=== PATIENT | female | born 1970 | race Caucasian/White ===

== ENCOUNTER 2017-08-11 06:10 | Inpatient (IN) ==
[2017-08-11] MEDS ORDERED: Lidocaine -MPF 1% 2 ML VIAL ID ONE (06:26)
[2017-08-11] MEDS ORDERED: Albuterol 2.5 MG/3 ML NEBULIZER IH ONE (06:26)
[2017-08-11] MEDS ORDERED: CeFAZolin Syr 2,000MG/20 ML 2,000 MG/20 ML SYRINGE IVPB ONE (06:26)
[2017-08-11] MEDS: Ringers Solution, Lactated 1,000 ML IVC SCH ×3 (06:35→17:06)
[2017-08-11] MEDS ORDERED: *HR* Midazolam HCl 2 MG/2 ML VIAL ONE ×2 (06:58→07:46)
[2017-08-11] MEDS ORDERED: *HR* Propofol 200 MG/20 ML VIAL IVP ONE (06:58)
[2017-08-11] MEDS ORDERED: *HR* FentaNYL (PF) 100 MCG/2 ML VIAL ONE (06:58)
[2017-08-11] MEDS ORDERED: *HR* Rocuronium Bromide 50 MG/5 ML VIAL ONE (06:59)
[2017-08-11] MEDS ORDERED: Ondansetron 4 MG/2 ML VIAL ONE (06:59)
[2017-08-11] MEDS ORDERED: Lidocaine -MPF 2% 2 ML VIAL ONE (06:59)
[2017-08-11] MEDS ORDERED: Lidocaine -MPF 4% 5 ML AMPUL ONE (06:59)
[2017-08-11] MEDS ORDERED: Dexamethasone 4 MG/ML VIAL ONE (06:59)
[2017-08-11] MEDS ORDERED: Lidocaine/EPI 1:100k 1% 20 ML VIAL ONE (07:37)
[2017-08-11] MEDS ORDERED: *HR* Belladonna Alkaloids/Opium 30 MG RECTAL SUPPOSITORY RC ONE (07:37)
[2017-08-11] MEDS ORDERED: *HR* Morphine Sulfate/PF 10 MG/10 ML AMPUL ONE (07:53)
--- NOTE | 2017-08-11 07:59 | Anesthesia Evaluation PreOp ---
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 DECORATING History: Other (anxiety) Other Medical History: Denies Any Significant HX Anesthesia History: No Prior Anesthetic Complications, Past Anesthesia (C/S, tubal, back sx) : No Test: Negative (08-05-17) Alcohol Use: none Drug use: none Medications and Allergies Polyethylene Glycol 3350 [MiraLAX] 17 gm PO DAILY 06/04/15 [History] Venlafaxine XR (24 HR) [Effexor XR] 150 mg PO DAILY 06/04/15 [History] Acyclovir [Zovirax] 400 mg PO BID 08/11/17 [History] Cholecalciferol (D-3) [Vitamin D] 2,000 unit PO DAILY 08/11/17 [History] traZODone [TraZODone] 50 - 100 mg PO HS 08/11/17 [History] 3 Allergy/AdvReac Type Severity Reaction Status Date / Time No Known Allergies Allergy Verified 08/11/17 06:50 - Meds/Allergy Pre-op Review Medications Reviewed: Yes Allergies Reviewed: Yes Beta Blockers on Current Med List: No Anesthesia Exam Selected Entries 08/11/17 06:36 Temperature 98.8 F Pulse Rate 86 Respiratory Rate 18 Blood Pressure 138/77 O2 Sat by Pulse Oximetry 96 Weight: 116kg NPO (# of Hours): 8 - HEENT Pupil (Motor): EOMI Mallampati: II Teeth: Edentulous Oral Opening: Greater than 3 - INSTRUCTOR DECORATING LOC: Oriented INSTRUCTOR DECORATING Motor: Normal RUE, Normal LUE, Normal RLE, Normal LLE, Normal Face INSTRUCTOR DECORATING Sensory: Normal: RUE, LUE, RLE, LLE, Face - Cardiac Rhythm: Regular Murmur: None - Pulmonary Breath Sounds: bilateral Clear Respiratory Effort: Symmetrical Anesthesia Assess/Plan ASA Score: 2 Modified Oakman Scale for Level of Consciousness: Cooperative, oriented, and tranquil Anesthetic Plan: General Monitoring Plan: Standard Monitors Recovery Plan: PACU (patient agrees to GA but refuses intrathecal duramorph)
[2017-08-11] MEDS ORDERED: Acetaminophen IV 1,000 MG/100 ML INFUS..BTL ONE (08:05)
--- NOTE | 2017-08-11 08:05 | History & Physical Report ---
Date of Encounter: 08/11/17 Time of Encounter: 08:03 24 Hour HP Update - Instructions Instructions: If the History and Physical is less than 30 days old and was completed prior to A.M. admission and or procedure and has NOT been updated on calendar day of procedure please complete this update prior to performing procedure. - Update Patient reports changes in Medical Condition: No Changes in examination, assessment, or condition: No Changes in Medication: No Preop tests/diagnostics Reviewed: No Surgery Remains Indicated: Yes Consent for Planned Operative Procedure(s) Verified: Yes - Pre-Operative Checklist Preoperative Checklist Indicated: Yes Prophylactic Antibiotic Ordered: Yes Home Medications Include Beta Aleah: No Beta Aleah Taken Today (Day of Surgery): No Beta Aleah Taken Yesterday (Day Prior to Surgery): No Is VTE Prophylaxis Indicated?: Yes - Attending Attestation phong callejas md facog
[2017-08-11] MEDS ORDERED: Ketamine *HR* 500 MG/10 ML MDV ONE (08:17)
[2017-08-11] MEDS ORDERED: MORPHINE SUL Oral CONC 10 MG/0.5 ML ORAL.SYG SL PRN (08:24)
[2017-08-11] MEDS ORDERED: *HR* OxyCODONE Immed Rel 5 MG TABLET PO PRN ×2 (08:24→11:03)
[2017-08-11] MEDS ORDERED: *HR* Labetalol 20 MG/4 ML SYRINGE IVP PRN (08:24)
[2017-08-11] MEDS ORDERED: Ondansetron 4 MG/2 ML VIAL IVP ONE (08:24)
[2017-08-11] MEDS ORDERED: *HR* Promethazine 25 MG/ML VIAL IVP PRN (08:24)
[2017-08-11] MEDS ORDERED: Ketorolac 30 MG/ML VIAL ONE (08:43)
[2017-08-11] MEDS ORDERED: Venlafaxine XR (24 HR) 150 MG CAP.ER.24H PO SCH (09:00)
[2017-08-11] MEDS ORDERED: Cholecalciferol (D-3) 1,000 UNIT TABLET PO SCH (09:00)
--- NOTE | 2017-08-11 09:06 | Operative Note ---
Date of procedure: 08/11/17 Pre-op diagnosis: Abnormal colon on palpation Post-op diagnosis: other (Likely diverticulitis) Procedure: Intraoperative consultation Anesthesia: DEBRA Surgeon: Leo Escobar Was there an assistant store leader present: No Estimated blood loss (cc): 0 Specimen: None Condition: stable Disposition: no change Procedure in Detail: I was contacted by Dr. Foster during a total abdominal hysterectomy. During the conduct of the operation was noted that the sigmoid colon was abnormal palpation I was called to the operating room to make an intraoperative evaluation. I scrubbed into the operative field and examined the rectum and sigmoid colon. The rectum was normal. The sigmoid colon demonstrated a thickened mesentery that was quite firm. Findings were consistent with subacute diverticulitis. The patient has not previously had colonoscopy and will require confirmatory colonoscopy. I do not feel that the findings were consistent with malignancy or tumor. I have recommended a seven-day course of ciprofloxacin and Flagyl for the patient to treat what appears to be subacute diverticulitis. I will see her in the office during the convalescent period to arrange colonoscopy evaluation. Dr. Foster remained the surgeon of record during the entire procedure. Thank you very much for the consultation
[2017-08-11] MEDS ORDERED: Neostigmine Methylsulfate 3 MG/3 ML SYRINGE ONE (09:22)
--- NOTE | 2017-08-11 10:44 | Anesthesia Evaluation Post Op ---
Date of Encounter: 08/11/17 Time of Encounter: 10:43 - Vital Signs Vital Signs: Selected Entries 08/11/17 10:12 08/11/17 10:32 Temperature 98.3 F Pulse Rate 84 Respiratory Rate 16 Blood Pressure 139/74 O2 Sat by Pulse Oximetry 91 Oxygen Flow Rate (LPM) 3 - Lungs Lungs: Clear Ascult./Percussion - Airway Airway: Non-obstructed - Cardiovascular Regular Rate - Mental Status Mental Status: Alert & Oriented, Answers Appropriately - Pain Pain Scale: 4 Pain Scale used: Numeric (1 - 10) - Nausea Vomiting Nausea Vomiting: Not Present - Hydration Hydration: Ice chips, Ellington catheter - Discharge PostOp Status: Transfer Patient to floor
--- NOTE | 2017-08-11 10:45 | OB/GYN Procedure Note ---
Hysterectomy - Diagnosis Date of procedure: 08/11/17 Hysterectomy pre-op: abnormal uterine bleeding, chronic pelvic pain, menorrhagia Post-op diagnosis: other (Diverticular disease) - Procedure Hysterectomy procedure: total abdominal hysterectomy, left salpingo oophorectomy , right salpingo oophorectomy Surgeon: Alejandro Foster Was there an physical laboratory assistant present: Yes Line Lead: Awa Cabrales Anesthesia provider: Virgilio Tolbert Anesthesia Type: General Estimated blood loss (cc): 100 Complications: none Fluids: crystalloid Urine output (cc): 200 Specimens: right ovary, uterus, cervix, left ovary, right fallopian tube, left fallopian tube Findings: Upon entering the pelvic abdominal cavity, the uterus was consistent with adenomyosis. Left ovary and tube appeared to be stuck to the sigmoid colon. The right tube and ovary appeared to be normal. The sigmoid colon appeared to be indurated. Dr. Escobar came in and evaluated the sigmoid colon please see his note. Disposition: PACU Narrative: Patient was taken to the operating room. After satisfactory anesthesia was achieved, patient placed in supine position Ellington catheter inserted and prepped and draped in usual manner. After appropriate timeout, the abdomen was entered through standard Maylard incision. The Chandan retractor was placed. The above- noted findings were seen. The infundibulopelvic ligament on the right side was coagulated and cut. Round ligament was coagulated and cut on the right side. Bladder flap created anteriorly. The mesol ovarian ligament and round ligament was coagulated and cut. Uterine arteries were coagulated both sides and cut. Bladder flap was created anteriorly. At this time Dr. Escobar came in and evaluated colon. He felt that the patient had diverticular disease and recommended short-term antibiotic therapy as well as colonoscopy. At that point , the cardinal ligaments were coagulated on both sides and cut. The uterosacral Ligaments were clamped cut and suture ligated with 0 Monocryl. The vagina was entered. Allis clamps were placed. Cervix and uterus and attached right adnexa were removed to send to pathology for analysis. The cuff was closed with 0 Monocryl. Attention was then turned to the left tube and ovary. The infundibulopelvic ligament was coagulated and cut. The remainder of the pedicle was coagulated and cut. And the specimen was removed. After assurance of hemostasis, peritoneum was reapproximated with a 2-0 Vicryl over the raw cuff. The packs and retractors were removed. The abdomen was closed standard fashion using 0 Vicryl in the fascia and 3-0 Vicryl and the skin. Sterile dressing was applied. Lesion on the right vulva was prepped and draped in usual manner. Local was used to inject this area. The mass was removed and sent to pathology for analysis. The tissue was reapproximated with a 3-0 Monocryl in a subcuticular manner. Patient did well was taken to recovery room in satisfactory condition. Counts were correct.
[2017-08-11] MEDS ORDERED: Acyclovir 200 MG CAPSULE PO SCH (11:00)
[2017-08-11] MEDS ORDERED: Naloxone 0.4 MG/ML INJ IVP PRN (11:03)
[2017-08-11] MEDS ORDERED: Ondansetron 4 MG/2 ML VIAL IVP PRN (11:03)
[2017-08-11] MEDS ORDERED: *HR* HYDROcodone/Acet 5/325 mg TABLET PO PRN (11:03)
[2017-08-11] MEDS ORDERED: Sennosides 8.6 MG TABLET PO PRN (11:03)
[2017-08-11] MEDS ORDERED: OXYCODONE Oral CONC 10 MG/0.5 ML ORAL.SYG SL PRN (16:08)
[2017-08-11] MEDS: *HR* OxyCODONE/APAP 5/325 TABLET PO PRN ×2 (16:12→20:27)
[2017-08-11] MEDS ORDERED: Ringers Solution, Lactated 1,000 ML ONE (16:58)
[2017-08-11] MEDS ORDERED: Ringers Solution, Lactated 1,000 ML IVC SCH (17:00)
[2017-08-11] MEDS: metroNIDAZOLE 500 MG TABLET PO SCH (20:26)
[2017-08-11] MEDS ORDERED: traZODone 50 MG TABLET PO SCH ×2 (21:00)
[2017-08-11] MEDS: Acyclovir 200 MG CAPSULE PO SCH (21:52)
[2017-08-11] MEDS: Ketorolac 30 MG/ML VIAL IVP PRN (22:27)
[2017-08-12 04:53] LABS: Basophils % 0.3 %; Eosinophils % 0.1 %; Hematocrit 37.1 % (35.3-44.9); Immature Granulocytes % 0.3 % (0-4); Lymphocytes # 2.9 K/mcL (0.6-4.6); Lymphocytes % 26.3 %; Mean Corpuscular HGB Conc 31.8 g/dL (31.6-35.5); Mean Corpuscular Volume 87.9 fL (83.0-100.0); Mean Platelet Volume 11.6 fL (9.4-12.4); Monocytes % 9.6 %; Neutrophils # 6.9 K/mcL (1.6-8.9); Platelet Count 246 K/mcL (140-400); Red Blood Count 4.22 M/mcL (3.82-4.97); Red Cell Distribution Width 17.2 % (11.5-14.5); Segmented Neutrophils % 63.4 %
[2017-08-12 04:59] LABS: Hemoglobin 11.8 g/dL (11.5-15.4)
[2017-08-12 05:25] LABS: eGFR For African Americans > 60 (> 60); eGFR For Non-African Americans > 60 (> 60)
[2017-08-12] MEDS: *HR* OxyCODONE/APAP 5/325 TABLET PO PRN (05:55)
--- NOTE | 2017-08-12 08:16 | Discharge Summary ---
Date of Encounter: 08/12/17 Time of Encounter: 08:17 - Discharge Diagnosis (1) Uterus, adenomyosis Priority: Primary Status: Resolved (2) Diverticula of colon Priority: Secondary Status: Chronic (3) Menorrhagia with irregular cycle Priority: Secondary Status: Resolved - Discharge Medications Prescriptions: OxyCODONE/APAP 5/325 [Percocet 5/325 MG] 1 each PO Q4HR PRN 14 Days #40 tablet PRN Reason: Severe Pain (7-10) Ciprofloxacin [Cipro] 500 mg PO BID 7 Days #14 tablet metroNIDAZOLE [Flagyl] 500 mg PO BID 7 Days #14 tablet Home Medications: Polyethylene Glycol 3350 [MiraLAX] 17 gm PO DAILY 06/04/15 [History] Venlafaxine XR (24 HR) [Effexor XR] 150 mg PO DAILY 06/04/15 [History] Acyclovir [Zovirax] 400 mg PO BID 08/11/17 [History] Cholecalciferol (D-3) [Vitamin D] 2,000 unit PO DAILY 08/11/17 [History] traZODone [TraZODone] 50 - 100 mg PO HS 08/11/17 [History] Ciprofloxacin [Cipro] 500 mg PO BID 7 Days #14 tablet 08/12/17 [Rx] OxyCODONE/APAP 5/325 [Percocet 5/325 MG] 1 each PO Q4HR PRN 14 Days #40 tablet 08/12/17 [Rx] metroNIDAZOLE [Flagyl] 500 mg PO BID 7 Days #14 tablet 08/12/17 [Rx] Allergies/Adverse Reactions: 3 Allergy/AdvReac Type Severity Reaction Status Date / Time No Known Allergies Allergy Verified 08/11/17 06:50 Data Procedures and tests throughout hospitalization: Laboratory Tests 08/12/17 08/12/17 04:07 04:07 WBC 10.9 RBC 4.22 Hgb 11.8 D Hct 37.1 MCV 87.9 MCH 28.0 MCHC 31.8 RDW 17.2 H Plt Count 246 MPV 11.6 Immature Gran % 0.3 Seg Neutrophils % 63.4 Lymphocytes % 26.3 Monocytes % 9.6 Eosinophils % 0.1 Basophils % 0.3 Neutrophils # 6.9 Lymphocytes # 2.9 Monocytes # 1.0 Eosinophils # 0.0 Basophils # 0.0 Creatinine 0.65 Est GFR ( Amer) > 60 Est GFR (Non-Af Amer) > 60 Labs on day of discharge: Labs from last 24 hours 08/12/17 08/12/17 04:07 04:07 WBC 10.9 RBC 4.22 Hgb 11.8 D Hct 37.1 MCV 87.9 MCH 28.0 MCHC 31.8 RDW 17.2 H Plt Count 246 MPV 11.6 Immature Gran % 0.3 Seg Neutrophils % 63.4 Lymphocytes % 26.3 Monocytes % 9.6 Eosinophils % 0.1 Basophils % 0.3 Neutrophils # 6.9 Lymphocytes # 2.9 Monocytes # 1.0 Eosinophils # 0.0 Basophils # 0.0 Creatinine 0.65 Est GFR ( Amer) > 60 Est GFR (Non-Af Amer) > 60 Date of admission: 08/11/17 10:58 Primary care physician: Con Titus MD - Patient Status Disposition: Home, Self-Care Condition: Good Functional capacity at discharge: independent ambulation Overall status at discharge: patient is progressing back to baseline - Discharge Instructions Follow Up With: Con Titus MD [Primary Care Provider] - - Diet and Activity Activity: increase activity as tolerated Diet: advance to your usual diet Hospital Course GEOPHYSICAL 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 SURVEYOR Time Attestation: Total time spent providing and/or coordinating discharge services: Exam - Constitutional Vitals: Temp Pulse Resp BP Pulse Ox 98.6 F 79 16 132/76 95 08/12/17 03:45 08/12/17 03:45 08/12/17 03:45 08/12/17 03:45 08/12/17 03:45 General appearance IM: A&O X 3 - Respiratory Respiratory exam: Present: CTAB - Cardiovascular Cardiovascular exam IM: Present: RRR - GI/Abdominal GI/Abdominal exam IM: normal bowel sounds, soft Incision: normal, intact - Rectal Rectal exam: deferred - External exam: normal external exam - Extremities Exam Extremities exam IM: Present: full ROM - Neurological Exam Neurological exam: CN II-XII intact - VTE Documentation of Mechanical Device: Intermittent pneumatic compression device - Attending Attestation phong callejas md , facog
[2017-08-12] MEDS: metroNIDAZOLE 500 MG TABLET PO SCH (08:32)
[2017-08-12] MEDS: Acyclovir 200 MG CAPSULE PO SCH (08:33)
[2017-08-12] MEDS: Ketorolac 30 MG/ML VIAL IVP PRN (08:40)
[2017-08-12 08:41] VITALS: BP 148/78
[2017-08-12] MEDS ORDERED: Cholecalciferol (D-3) 1,000 UNIT TABLET PO SCH (09:00)
[2017-08-12] MEDS ORDERED: Venlafaxine XR (24 HR) 150 MG CAP.ER.24H PO SCH (09:00)
== END 2017-08-12 09:56 | disposition home or self-care (01) | DRG 742 ==
LOC: SAMDAY 06:10 → 1NENUOBS 10:58
PROVIDERS: ADMIT Obstetrics & Gynecology; ATTEND Obstetrics & Gynecology

== ENCOUNTER 2018-02-11 08:12 | Inpatient (IN) ==
[~2018-02-11 08:12] MED LIST: cefOXitin 1,000 MG, Sodium Chloride IRRigation 1,000 ML IR ONE
[2018-02-11] MEDS ORDERED: Lidocaine -MPF 2% 2 ML VIAL ONE (08:30)
[2018-02-11] MEDS ORDERED: Neostigmine Methylsulfate 3 MG/3 ML SYRINGE ONE (08:30)
[2018-02-11] MEDS ORDERED: *HR* FentaNYL (PF) 100 MCG/2 ML VIAL ONE (08:30)
[2018-02-11] MEDS ORDERED: Ketorolac 30 MG/ML VIAL ONE (08:30)
[2018-02-11] MEDS ORDERED: Dexamethasone 4 MG/ML VIAL ONE (08:30)
[2018-02-11] MEDS ORDERED: Lidocaine -MPF 4% 5 ML AMPUL ONE (08:30)
[2018-02-11] MEDS ORDERED: Ondansetron 4 MG/2 ML VIAL ONE (08:30)
[2018-02-11] MEDS ORDERED: *HR* Rocuronium Bromide 50 MG/5 ML VIAL ONE (08:30)
[2018-02-11] MEDS ORDERED: *HR* Propofol 200 MG/20 ML VIAL IVP ONE (08:31)
[2018-02-11] MEDS ORDERED: *HR* Midazolam HCl 2 MG/2 ML VIAL ONE (08:31)
[2018-02-11] MEDS ORDERED: Albuterol 2.5 MG/3 ML NEBULIZER IH ONE (08:32)
[2018-02-11] MEDS ORDERED: cefOXitin 2,000 MG in Water for inj. (sterile) 20 ML 20 ML IVP ONE (08:32)
[2018-02-11] MEDS ORDERED: Ringers Solution, Lactated 1,000 ML IVC SCH (08:45)
--- NOTE | 2018-02-11 08:49 | Anesthesia Evaluation PreOp ---
Date of Encounter: 02/11/18 Time of Encounter: 08:47 - Past History Planned Operation: Sigmoid Colectomy Cardiac History: Denies any Significant Hx Pulmonary History: Smoker (47 years) ANALYTICS INTERN History: Denies Any Significant HX Other Medical History: Other (anxiety/depression) Anesthesia History: No Prior Anesthetic Complications, Past Anesthesia ( hysterectomy) Alcohol Use: none Drug use: none Medications and Allergies Polyethylene Glycol 3350 [MiraLAX] 17 gm PO DAILY 06/04/15 [History] Venlafaxine XR (24 HR) [Effexor XR] 150 mg PO DAILY 06/04/15 [History] Acyclovir [Zovirax] 400 mg PO BID 08/11/17 [History] Cholecalciferol (D-3) [Vitamin D] 2,000 unit PO DAILY 08/11/17 [History] traZODone [TraZODone] 50 - 100 mg PO HS 08/11/17 [History] Ciprofloxacin [Cipro] 500 mg PO BID 7 Days #14 tablet 08/12/17 [Rx] OxyCODONE/APAP 5/325 [Percocet 5/325 MG] 1 each PO Q4HR PRN 14 Days #40 tablet 08/12/17 [Rx] metroNIDAZOLE [Flagyl] 500 mg PO BID 7 Days #14 tablet 08/12/17 [Rx] 3 Allergy/AdvReac Type Severity Reaction Status Date / Time No Known Allergies Allergy Verified 02/01/18 14:12 - Meds/Allergy Pre-op Review Medications Reviewed: Yes Allergies Reviewed: Yes Beta Blockers on Current Med List: No Anesthesia Exam O2 Sat Height 1.65 m Height 1.65 m Height 1.65 m Weight 106.594 kg Weight 106.594 kg Weight 106.594 kg O2 Sat by Pulse Oximetry 95 O2 Sat by Pulse Oximetry 95 Vital Signs Resp Pulse Ox 18 95 02/11/18 08:33 02/11/18 08:33 Height: 5'5'' Weight: 235 lbs NPO (# of Hours): 8 Pain Scale: 0 Pain Scale Used: Numeric (1 - 10) - HEENT Pupil (Motor): EOMI Mallampati: II Teeth: Edentulous Oral Opening: Greater than 3 - ANALYTICS INTERN LOC: Oriented ANALYTICS INTERN Motor: Normal RUE, Normal LUE, Normal RLE, Normal LLE, Normal Face ANALYTICS INTERN Sensory: Normal: RUE, LUE, RLE, LLE, Face - Cardiac Rhythm: Regular Murmur: None - Pulmonary Breath Sounds: bilateral Clear Respiratory Effort: Symmetrical Anesthesia Assess/Plan ASA Score: 2 Modified Conway Scale for Level of Consciousness: Cooperative, oriented, and tranquil Anesthetic Plan: General Monitoring Plan: Standard Monitors Recovery Plan: PACU
[2018-02-11] MEDS ORDERED: Povidone-Iodine 28.4 GM TUBE TP ONE (09:03)
--- NOTE | 2018-02-11 09:09 | History & Physical Report ---
Date of Encounter: 02/11/18 Time of Encounter: 09:00 24 Hour HP Update - Instructions Instructions: If the History and Physical is less than 30 days old and was completed prior to A.M. admission and or procedure and has NOT been updated on calendar day of procedure please complete this update prior to performing procedure. - Update Patient reports changes in Medical Condition: No Changes in examination, assessment, or condition: No Changes in Medication: No Preop tests/diagnostics Reviewed: Yes Surgery Remains Indicated: Yes Consent for Planned Operative Procedure(s) Verified: Yes - Pre-Operative Checklist Prophylactic Antibiotic Ordered: Yes Home Medications Include Beta Aleah: No Is VTE Prophylaxis Indicated?: Yes
[2018-02-11] MEDS ORDERED: Albuterol 2.5 MG/3 ML NEBULIZER IH PRN (09:18)
[2018-02-11] MEDS ORDERED: *HR* Meperidine 25 MG/ML SYRINGE IVP PRN (09:18)
[2018-02-11] MEDS ORDERED: *HR* HYDROmorphone (PF) 1 MG/ML SYRINGE IVP PRN (09:18)
[2018-02-11] MEDS ORDERED: *HR* Promethazine 25 MG/ML VIAL IVP PRN (09:18)
[2018-02-11] MEDS ORDERED: *HR* PHENYLEPHRINE 1,000 MCG/10 ML SYRINGE IVP ONE (10:17)
--- NOTE | 2018-02-11 12:01 | Operative Note ---
Date of procedure: 02/11/18 Pre-op diagnosis: Sigmoid colon stricture Post-op diagnosis: other (Sigmoid colon stricture secondary to diverticulitis) Procedure: Sigmoid colectomy Anesthesia: DEBRA Surgeon: Leo Escobar Was there an health information assistant present: Yes Security Installer: Ajay Rowell Estimated blood loss (cc): 50 Specimen: Sigmoid colon Condition: stable Disposition: PACU Procedure in Detail: After informed consent the patients taking major operating suite placed supine position given adequate general endotracheal anesthesia. Prepped and draped in sterile fashion utilizing ChloraPrep standard draping techniques. Timeout was taken and patient was identified. Dr. Hurst was present throughout the entire operation as virtual office assistant. The midline was opened from just above the umbilicus to pubis the abdomen was entered. There were some mild omental adhesions to the pelvis these were divided and a Bookwalter retractor was placed. The sigmoid colon was scarred deeply into the pelvis. I was able to completely mobilize the sigmoid colon and rectum with complete mobilization of the rectosigmoid segment. I then mobilize the left colon by dividing the white line laterally with complete mobilization. The abnormal area in the sigmoid colon was a fusiform area of induration in the mid sigmoid. I divided the rectosigmoid junction with a contour stapler. I divided the descending sigmoid junction with a contour stapler. The sigmoid mesentery was divided between clamps and hemostatic ligatures with positive identification of the left specimen was passed off field. Handsewn 2 layer anastomosis was performed using 2-0 silk seromuscular stitches and running chromic mucosal stitch. This gave an excellent technical result. There was no evidence of leak. The anastomosis was tested with air pressure under water I closed the mesentery with interrupted silk. The abdomen was irrigated with copious amounts of normal saline solution sponge and needle count was correct. The midline was closed with looped 0 PDS and skin was closed with interrupted Vicryl and skin clips. A total of 20 mL of Marcaine was used for local anesthetic. Patient tolerated procedure well.
--- NOTE | 2018-02-11 12:54 | Anesthesia Evaluation Post Op ---
Date of Encounter: 02/11/18 Time of Encounter: 12:50 - Vital Signs Vital Signs: Vital Signs Vital Signs Assessment Start: 02/11/18 09:03 Freq: CONT Status: Active Protocol: Activity Type Activity Date Activity User E-Sign Co-Sign Detail Recorded Client Recorded Date Recorded By Abhay 02/11/18 09:04 RTL [id number] 02/11/18 09:04 BKG DAEMON Temp Pulse Resp BP Pulse Ox 02/11/18 12:42 70 20 128/73 97 02/11/18 12:32 97.5 F L 66 20 120/79 96 02/11/18 12:22 60 24 130/75 96 02/11/18 12:12 62 20 124/80 95 02/11/18 12:02 98.0 F 76 20 123/83 97 02/11/18 08:40 98.1 F 76 18 102/64 95 02/11/18 08:33 18 95 - Lungs Lungs: Clear Ascult./Percussion - Airway Airway: Non-obstructed - Cardiovascular Regular Rate, Baseline Rhythm - Mental Status Mental Status: Alert & Oriented, Answers Appropriately - Pain Pain Scale: 8 (pt just recieved 1 mg dilaudid and is so snoring in her bed when not being spoken to) Pain Scale used: Numeric (1 - 10) - Nausea Vomiting Nausea Vomiting: Not Present - Discharge PostOp Status: Transfer Patient to floor
[2018-02-11] MEDS: 0.9 % Sodium Chloride 1,000 ML IVC SCH (13:24)
[2018-02-11] MEDS: OXYCODONE Oral CONC 10 MG/0.5 ML ORAL.SYG SL PRN ×2 (14:09→18:07)
[2018-02-11] MEDS: *HR* OxyCODONE/APAP 5/325 TABLET PO PRN ×2 (15:07→21:02)
[2018-02-11] MEDS: cefOXitin 2,000 MG in Water for inj. (sterile) 20 ML 20 ML IVP SCH ×2 (16:20→23:59)
[2018-02-11] MEDS ORDERED: *HR* Heparin 5,000 UNIT/ML VIAL SQ SCH (18:00)
[2018-02-11] MEDS: traZODone 50 MG TABLET PO SCH (20:57)
[2018-02-12] MEDS: OXYCODONE Oral CONC 10 MG/0.5 ML ORAL.SYG SL PRN ×2 (00:09→09:43)
[2018-02-12] MEDS: 0.9 % Sodium Chloride 1,000 ML IVC SCH ×2 (02:51→16:31)
[2018-02-12] MEDS: *HR* OxyCODONE/APAP 5/325 TABLET PO PRN ×2 (03:36→14:35)
[2018-02-12] MEDS ORDERED: *HR* HYDROmorphone (PF) 1 MG/ML SYRINGE IVP PRN (09:02)
--- NOTE | 2018-02-12 09:12 | General Surgery Progress Note ---
<Gloria Padgett E - Last Filed: 02/12/18 09:10> Date of Encounter: 02/12/18 Time of Encounter: 09:11 - Assessment and Plan (1) S/P partial colectomy Status: Acute Date of procedure: 02/11/18 Pre-op diagnosis: Sigmoid colon stricture Post-op diagnosis: other (Sigmoid colon stricture secondary to diverticulitis) Procedure: Sigmoid colectomy Anesthesia: GETA Surgeon: Leo Escobar POD #1 from above Pain medication added Toradol 15mg q6 scheduled for 48 hours due to pain not being controlled by oxycodone and percoset, will ask patient to try oxycodone once more before changing to dilaudid if no better with this Supportive care Clear liquid diet IV fluids OOBTC as tolerated for trays Serial abdominal exams (2) Depression Status: Chronic continue home medications Qualifiers: Depression Type: major depressive disorder Major depression recurrence: unspecified whether recurrent Qualified Code(s): F32.9 - Major depressive disorder, single episode, unspecified (3) Anxiety Status: Acute continue home medications (4) Lumbar radiculopathy Status: Chronic will hold on mobic at this time, is receiving Toradol for pain Subjective Patient reports: still having pain, flatus, no bowel movement, other (Patient states she has been having back pain that is not controlled by her current pain medications. She has been passing gas and beltching. ) Objective Vital Signs - Last 8 Hours Temp Pulse Resp BP Pulse Ox 02/12/18 06:49 98.3 F 78 14 119/60 91 02/12/18 03:57 98.4 F 78 14 124/78 93 Intake and Output 02/11/18 02/12/18 02/12/18 23:59 07:59 15:59 Intake Total 20 / 20 1000 / 1000 Output Total 0 / 0 Balance 20 / 20 1000 / 1000 Intake: IV Fluids 20 / 20 1000 / 1000 0.9 % Sodium Chloride 1,000 ML 1000 / 1000 @ 75 mls/hr IVC .[id number] [facility] Rx #:[id number] Mefoxin 2,000 MG In Water for 20 / 20 inj. (sterile) 20 ML @ 300 mls/ hr IVP Q8HR [facility] Rx#:[id number] Oral 0 / 0 Output: Urine 0 / 0 Other: Meal NPO # Voids 1 # Bowel Movements 0 Weight 107.9 kg Blood Glucose* 108 Patient Weight 02/12/18 23:59 Weight 107.9 kg - General physical appearance well developed, well nourished, moderate distress - Respiratory normal expansion, normal respiratory effort, clear to auscultation - Cardiovascular Cardiovascular exam: Present: RRR, no murmurs/rubs/gallops - Abdomen Abdomen: Present: bowel sounds present, soft, tender Abdominal Tenderness: diffusely - Incision Incision: Present: draining (a small amount of serosanguinous fluid at the base of the incision) - Integumentary no rash, no growths, no abnormal pigmentation - Musculoskeletal normal posture - Psychiatric oriented to time, oriented to person, oriented to place Consult Discharge Plan - Plan Instructions: Depression (DC), Colectomy (DC), Anxiety (DC) Referrals: Rodri Titus [Primary Care Provider] - Prescriptions: OxyCODONE/APAP 7.5/325 [Percocet 7.5/325 MG] 1 each PO Q6HR PRN 7 Days #20 tablet PRN Reason: Pain <Leo Escobar - Last Filed: 02/15/18 08:49> Date of Encounter: 02/12/18 Objective Intake and Output 02/14/18 02/14/18 02/15/18 15:59 23:59 07:59 Intake Total 2200 / 2200 Output Total 600 / 600 Balance 1600 / 1600 Intake: IV Fluids 1000 / 1000 0.9 % Sodium Chloride 1,000 ML 1000 / 1000 @ 75 mls/hr IVC .[id number] [facility] Rx #:[id number] Oral 1200 / 1200 Output: Urine 600 / 600 Other: Meal Lunch Percent of Meal Consumed 85% - Labs 02/12/18 09:14 02/12/18 09:14 - Attending Attestation I examined this patient and my medical decision-making was reviewed with the Resident Physician. I agree with the documented findings, disposition and treatment plan as described except to the extent set forth below. The patient is seen and evaluated on morning rounds with resident. She is doing well on postoperative day 1 after sigmoid colectomy. She has good bowel sounds. We will start her on clear liquids. Leo Escobar MD FACS
[2018-02-12 09:23] LABS: Basophils % 0.2 %; Hematocrit 41.6 % (35.3-44.9); Hemoglobin 14.1 g/dL (11.5-15.4); Immature Granulocytes % 0.4 % (0-4); Lymphocytes # 2.1 K/mcL (0.6-4.6); Lymphocytes % 14.6 %; Mean Corpuscular HGB Conc 33.9 g/dL (31.6-35.5); Mean Corpuscular Hemoglobin 30.9 pg (28.0-33.3); Monocytes # 1.4 K/mcL (0.0-1.3); Monocytes % 10.2 %; Neutrophils # 10.5 K/mcL (1.6-8.9); Platelet Count 193 K/mcL (140-400); Red Blood Count 4.57 M/mcL (3.82-4.97); Red Cell Distribution Width 16.2 % (11.5-14.5); Segmented Neutrophils % 74.6 %
[2018-02-12] MEDS: BuPROPion XL (24 HR) 150 MG TABLET PO SCH (09:40)
[2018-02-12 09:44] LABS: BUN/Creatinine Ratio 14 (6-26); Blood Urea Nitrogen 11 mg/dL (6-20); Carbon Dioxide 24 mEq/L (23-29); Chloride 111 mEq/L (98-107); Glucose 113 mg/dL (70-105); Osmolality,Calculated 292 (280-300); Potassium 3.9 mEq/L (3.5-5.1); Sodium 141 mEq/L (136-145); eGFR For Non-African Americans > 60 (> 60)
[2018-02-12] MEDS: Ketorolac 15 MG/ML VIAL IVP SCH ×2 (11:11→17:17)
[2018-02-12] MEDS: Acetaminophen IV 1,000 MG/100 ML INFUS..BTL IVPB SCH ×3 (15:39→21:52)
[2018-02-12] MEDS: traZODone 50 MG TABLET PO SCH (21:53)
[2018-02-13] MEDS: Ketorolac 15 MG/ML VIAL IVP SCH ×4 (00:04→18:08)
[2018-02-13] MEDS: Acetaminophen IV 1,000 MG/100 ML INFUS..BTL IVPB SCH ×4 (03:27→21:07)
[2018-02-13] MEDS: 0.9 % Sodium Chloride 1,000 ML IVC SCH ×2 (06:10→21:07)
[2018-02-13] MEDS: BuPROPion XL (24 HR) 150 MG TABLET PO SCH ×2 (08:44→08:48)
[2018-02-13] MEDS: *HR* OxyCODONE/APAP 5/325 TABLET PO PRN ×2 (13:14→21:20)
--- NOTE | 2018-02-13 14:13 | General Surgery Progress Note ---
Date of Encounter: 02/13/18 Time of Encounter: 14:11 - Assessment and Plan (1) Diverticula of colon Current Visit: No Status: Chronic Currenlty tolerating clears. Will continue to ambulate and may qualify for discharge tomorrow. Subjective Patient reports: no new complaints, feels better Objective Vital Signs - Last 8 Hours Temp Pulse Resp BP Pulse Ox 02/13/18 10:26 98.0 F 69 14 128/79 96 02/13/18 06:36 98.7 F 76 15 118/76 93 Intake and Output 02/12/18 02/13/18 02/13/18 23:59 07:59 15:59 Intake Total 1340 / 1340 1300 / 1300 840 / 840 Output Total 700 / 700 400 / 400 300 / 300 Balance 640 / 640 900 / 900 540 / 540 Intake: IV Fluids 1100 / 1100 1100 / 1100 0.9 % Sodium Chloride 1,000 ML 1000 / 1000 1000 / 1000 @ 75 mls/hr IVC .[id number] [facility] Rx #:[id number] Ofirmev 1,000 mg/100 ml 1,000 100 / 100 100 / 100 mg In 100 ml @ 400 mls/hr IVPB Q6H [facility] Rx#:[id number] Oral 240 / 240 200 / 200 840 / 840 Output: Urine 700 / 700 400 / 400 300 / 300 Other: Meal Dinner Lunch Weight 108.3 kg Patient Weight 02/13/18 23:59 Weight 108.3 kg - General physical appearance well developed, well nourished - Eyes PERRL, normal ocular movement - ENT normal nares, normal mucosa - Neck Neck exam: no masses, no bruits - Respiratory normal respiratory effort - Abdomen Abdomen: Present: bowel sounds present, soft - Incision Incision: Present: clean and dry - Neurologic CN 2-12 grossly intact - Psychiatric speech is normal - Labs 02/12/18 09:14 02/12/18 09:14 Consult Discharge Plan - Plan Referrals: Rodri Titus [Primary Care Provider] -
[2018-02-13] MEDS: traZODone 50 MG TABLET PO SCH (21:14)
[2018-02-14] MEDS: Ketorolac 15 MG/ML VIAL IVP SCH ×3 (00:41→11:33)
[2018-02-14] MEDS: Acetaminophen IV 1,000 MG/100 ML INFUS..BTL IVPB SCH ×3 (03:29→11:37)
[2018-02-14] MEDS: BuPROPion XL (24 HR) 150 MG TABLET PO SCH (08:13)
[2018-02-14] MEDS: *HR* OxyCODONE/APAP 5/325 TABLET PO PRN ×2 (08:17→13:57)
[2018-02-14] MEDS: 0.9 % Sodium Chloride 1,000 ML IVC SCH (08:17)
[2018-02-14 14:03] VITALS: BP 116/74
--- NOTE | 2018-02-14 16:15 | Discharge Summary ---
Orders not resulted at time of discharge: Pending orders 02/11/18 11:50 Surgical Pathology [PTH] Routine Date of Encounter: 02/14/18 Time of Encounter: 16:15 - Discharge Diagnosis (1) Diverticula of colon Priority: Primary Status: Chronic General Surgery Exam Initial Vital Signs Resp Pulse Ox 18 95 02/11/18 08:33 02/11/18 08:33 - Eyes PERRL - Neck trachea midline - Cardiovascular Cardiovascular exam: Present: RRR - Abdomen Abdomen general surgery: Present: soft, non tender - Integumentary Integumentary general surgery: Present: warm and dry, no abnormal pigmentation - Neurologic Present: CN 2-12 grossly intact, normal sensation - Psychiatric Psychiatric general surgery: Present: A&Ox3 - Hospital Course Hospital course: Ms. Whitney is a 47 year old female - Time Spent with Patient Total time spent providing and/or coordinating discharge services: - Discharge Medications Home Medications: Acyclovir [Zovirax] 400 mg PO BID 08/11/17 [History] Cholecalciferol (D-3) [Vitamin D] 2,000 unit PO DAILY 08/11/17 [History] Bupropion HCl [Wellbutrin Xl] 300 mg PO DAILY 02/11/18 [History] Meloxicam [Meloxicam] 15 mg PO DAILY 02/11/18 [History] Polyethylene Glycol 3350 [MiraLAX] 17 gm PO DAILY 02/11/18 [History] Trazodone HCl 100 mg PO HS 02/11/18 [History] Allergies/Adverse Reactions: 3 Allergy/AdvReac Type Severity Reaction Status Date / Time No Known Allergies Allergy Verified 02/11/18 09:17 Date of admission: 02/11/18 13:19 Primary care physician: Rodri Titus Labs on day of discharge: Labs from last 24 hours 02/12/18 05:13 POC Glucose 108 H - Patient Status Disposition: Home, Self-Care Condition: Fair Functional capacity at discharge: independent ambulation Overall status at discharge: patient is back to baseline - Discharge Instructions Instructions: Depression (DC), Colectomy (DC), Anxiety (DC) Follow Up With: Rodri Titus [Primary Care Provider] -
--- NOTE | 2018-02-14 16:18 | Discharge Summary ---
Outpatient Proc Discharge Plan - Plan Instructions: Depression (DC), Colectomy (DC), Anxiety (DC) Prescriptions: OxyCODONE/APAP 7.5/325 [Percocet 7.5/325 MG] 1 each PO Q6HR PRN 7 Days #20 tablet PRN Reason: Pain Home Medications: Acyclovir [Zovirax] 400 mg PO BID 08/11/17 [History] Cholecalciferol (D-3) [Vitamin D] 2,000 unit PO DAILY 08/11/17 [History] Bupropion HCl [Wellbutrin Xl] 300 mg PO DAILY 02/11/18 [History] Meloxicam 15 mg PO DAILY 02/11/18 [History] Polyethylene Glycol 3350 [MiraLAX] 17 gm PO DAILY 02/11/18 [History] Trazodone HCl 100 mg PO HS 02/11/18 [History] OxyCODONE/APAP 7.5/325 [Percocet 7.5/325 MG] 1 each PO Q6HR PRN 7 Days #20 tablet 02/14/18 [Rx]
== END 2018-02-14 16:30 | disposition home or self-care (01) | DRG 330 ==
LOC: SAMDAY 08:12 → 3ANU 13:19
PROVIDERS: ADMIT Surgery; ATTEND Surgery